=== PATIENT | female | born 1985 | race Asian ===

== ENCOUNTER 2020-06-27 11:33 | Emergency (ER) | payer OTHER ==
[~2020-06-27] VITALS: Ht 157.5 cm; Wt 72.7 kg
[2020-06-27 12:23] VITALS: BP 110/60
[2020-06-27] MEDS ORDERED: BUPR75 PO (13:41)
[2020-06-27 15:16] LABS: COVID AG,FIA SOURCE NASOPHARYNGEAL
== END 2020-06-27 14:34 | disposition home or self-care (01) ==
LOC: EMS 11:33
DX: R11.2 Nausea with vomiting, unspecified (principal); R09.81 Nasal congestion; Z20.828 Contact with and (suspected) exposure to other viral communicable diseases
CPT/HCPCS: 87426; 99283; C9803; U0003